=== PATIENT | female | born 1970 | race Caucasian/White ===

== ENCOUNTER 2017-10-05 06:17 | Day surgery (SDC) | payer BC, OTHER ==
[~2017-10-05] VITALS: Ht 167.6 cm; Wt 128.4 kg
[~2017-10-05 06:17] MED LIST: CALCAVITDA; FEXO180; MULVITA; OMEP20ER; VITNEPH
[2017-10-05] MEDS ORDERED: METO25ER PO (06:56)
[2017-10-05] MEDS ORDERED: VITAMIN D400 UNI1 PO (06:57)
== END 2017-10-05 09:50 | disposition home or self-care (01) ==
LOC: ORSCSDS 06:17
PROVIDERS: Orthopaedic Surgery
PROC: 0SBC4ZZ Excision of Right Knee Joint, Percutaneous Endoscopic Approach (ICD-10-PCS; principal; 2017-10-05 07:30)
DX: S83.241A Other tear of medial meniscus, current injury, right knee, initial encounter (principal); I10 Essential (primary) hypertension; K21.9 Gastro-esophageal reflux disease without esophagitis; E66.01 Morbid (severe) obesity due to excess calories; Z68.42 Body mass index [BMI] 45.0-49.9, adult; Z79.899 Other long term (current) drug therapy
CPT/HCPCS: J0171; J0690; J1100; J1885; J2405; J2765; J3010

== ENCOUNTER 2018-04-16 12:24 | Day surgery (SDC) | payer BC, OTHER ==
[~2018-04-16] VITALS: Ht 167.6 cm; Wt 118.1 kg
[~2018-04-16 12:24] MED LIST changes: +ASCO500 PO; +CHOL10002 PO; +Ferrous Sulfat325 M2 PO; +LOSA25 PO; +METO25ER PO; +Multiple Vitam1 EACH PO; +VITAMIN D400 UNI1 PO
== END 2018-04-16 14:11 | disposition home or self-care (01) ==
LOC: ORSCSDS 12:24
PROVIDERS: Internal Medicine Gastroenterology
PROC: 0DBE8ZX Excision of Large Intestine, Via Natural or Artificial Opening Endoscopic, Diagnostic (ICD-10-PCS; principal; 2018-04-16 13:45)
PROC: 0DBL8ZX Excision of Transverse Colon, Via Natural or Artificial Opening Endoscopic, Diagnostic (ICD-10-PCS; principal; 2018-04-16 13:45)
PROC: 0DB98ZX Excision of Duodenum, Via Natural or Artificial Opening Endoscopic, Diagnostic (ICD-10-PCS; principal; 2018-04-16 13:45)
PROC: 0DB68ZX Excision of Stomach, Via Natural or Artificial Opening Endoscopic, Diagnostic (ICD-10-PCS; principal; 2018-04-16 13:45)
PROC: 0DBP8ZX Excision of Rectum, Via Natural or Artificial Opening Endoscopic, Diagnostic (ICD-10-PCS; principal; 2018-04-16 13:45)
DX: D50.9 Iron deficiency anemia, unspecified (principal); K21.0 Gastro-esophageal reflux disease with esophagitis; I10 Essential (primary) hypertension; D12.3 Benign neoplasm of transverse colon; K62.1 Rectal polyp; K44.9 Diaphragmatic hernia without obstruction or gangrene; K57.30 Diverticulosis of large intestine without perforation or abscess without bleeding; K29.70 Gastritis, unspecified, without bleeding; E66.01 Morbid (severe) obesity due to excess calories; Z68.41 Body mass index [BMI] 40.0-44.9, adult; Z79.899 Other long term (current) drug therapy
CPT/HCPCS: 88305; 88342; J7120

== ENCOUNTER 2022-12-22 11:18 | Day surgery (SDC) | payer OTHER ==
[~2022-12-22] VITALS: Ht 167.6 cm; Wt 120.8 kg
[2022-12-22] MEDS ORDERED: ESTRADIOL1 EAC2 (11:47)
[2022-12-22] MEDS ORDERED: HYDCHL25 (11:48)
[2022-12-22 12:57] VITALS: BP 117/65
== END 2022-12-22 12:50 | disposition home or self-care (01) ==
LOC: ORSCSDS 11:18
PROVIDERS: Internal Medicine Gastroenterology
PROC: 0DBK8ZX Excision of Ascending Colon, Via Natural or Artificial Opening Endoscopic, Diagnostic (ICD-10-PCS; principal; 2022-12-22 13:45)
DX: Z12.11 Encounter for screening for malignant neoplasm of colon (principal); Z86.010 Personal history of colon polyps; D12.2 Benign neoplasm of ascending colon; K57.30 Diverticulosis of large intestine without perforation or abscess without bleeding; K64.8 Other hemorrhoids; I10 Essential (primary) hypertension; K21.9 Gastro-esophageal reflux disease without esophagitis; E66.9 Obesity, unspecified; Z68.41 Body mass index [BMI] 40.0-44.9, adult; Z79.899 Other long term (current) drug therapy
CPT/HCPCS: 88305; J2704

== ENCOUNTER → 2023-07-31 | Outpatient (CLI) | payer OTHER ==
[~2023-07-31] MED LIST changes: +ATOR10; +B COMPLEX FORM0.4 MG; +ESTRADIOL1 EAC2; +HYDCHL25; +LEVSOD75 PO
== END | disposition home or self-care (01) ==
LOC: LAB 10:30 → LAB SHORT 10:30
DX: L57.0 Actinic keratosis (principal)
CPT/HCPCS: 88305